=== PATIENT | female | born 1995 | race Caucasian/White ===

== ENCOUNTER 2018-03-30 00:07 | Emergency (ER) | payer OTHER ==
[2018-03-30 00:21] VITALS: BP 109/70; PULSE 80; TEMP 97.6; BMI 21.4
[2018-03-30] MEDS ORDERED: RANITIDINE HCL 150 MG TABLET (FP) PO ONE (00:26)
[2018-03-30] MEDS ORDERED: predniSONE 20 MG TABLET (UD) PO ONE (00:26)
--- NOTE | 2018-03-30 00:31 | PDOC ---
History of Present Illness - General Chief Complaint: Allergic Reaction Stated Complaint: ALLERGIC REACTION Time Seen by Provider: 03/30/18 00:21 History Source: Patient Exam Limitations: No Limitations - History of Present Illness Initial Comments: 03/30/18 00:27 22-year-old woman without significant past medical history who presents emergency Department with throat itching starting at approximately 9:00 this evening. Patient states she was eating a home-cooked meal vegetables and rice when she began to experience some itching and tingling in her mouth. She took Benadryl at that time but has not had relief of the throat itching. Patient denies any shortness of breath, difficulty breathing, vocal changes, drooling or swallowing. Past History - Past Medical History Home Medications: Ambulatory Orders Prednisone [Prednisone 50 MG TABLETS] 50 mg PO DAILY #3 tablet 03/30/18 - Suicide/Smoking/Psychosocial Hx Smoking History: Never smoked Have you smoked in the past 12 months: No Information on smoking cessation initiated: No Hx Alcohol Use: No Drug/Substance Use Hx: No Review of Systems - Review of Systems Able to Perform ROS?: Yes Is the patient limited Finnish proficient: No Constitutional: No: Symptoms Reported HEENTM: Yes: See HPI Respiratory: No: Symptoms reported Cardiac (ROS): No: Symptoms Reported ABD/GI: No: Symptoms Reported : No: Symptoms Reported Musculoskeletal: No: Symptoms Reported Integumentary: No: Symptoms Reported Neurological: No: Symptoms reported Endocrine: No: Symptoms Reported Hematologic/Lymphatic: No: Symptoms Reported *Physical Exam - Vital Signs Last Vital Signs Temp Pulse Resp BP Pulse Ox 97.6 F 80 20 109/70 99 03/30/18 00:20 03/30/18 00:20 03/30/18 00:20 03/30/18 00:20 03/30/18 00:20 - Physical Exam General Appearance: Yes: Appropriately Dressed. No: Apparent Distress HEENT: positive: Normal ENT Inspection. negative: Muffled/Hoarse voice, Excessive drooling Neck: positive: Trachea midline, Supple. negative: Stridor Respiratory/Chest: positive: Lungs Clear, Normal Breath Sounds. negative: Respiratory Distress, Accessory Muscle Use Integumentary: positive: Other (Fine flesh-colored pruritic rash noted to chin and upper extremities.) Neurologic: positive: Alert, Normal Response Medical Decision Making - Medical Decision Making 03/30/18 00:29 A/P: 22-year-old female with ALLERGIC reaction to unknown substance Oropharynx clear without edema No sublingual edema palpated No drooling No stridor noted Lungs clear to auscultation bilaterally Fine flesh-colored pruritic rash to face and bilateral upper extremities Zantac 300 mg, prednisone 60 mg, observe 03/30/18 01:28 Patient states relief of symptoms after receiving medications. Physical exam has not changed. I will discharge the patient home to follow-up with ENT to identify allergen. Patient is in agreement with this plan and verbalized understanding of discharge instructions. *DC/Admit/Observation/Transfer Diagnosis at time of Disposition: Allergic reaction Qualifiers: Encounter type: initial encounter Qualified Code(s): T78.40XA - Allergy, unspecified, initial encounter - Discharge Dispostion Disposition: HOME Condition at time of disposition: Fair Decision to Admit order: No - Prescriptions Prescriptions: Prednisone [Prednisone 50 MG TABLETS] 50 mg PO DAILY #3 tablet - Referrals Referrals: Mariano Ruiz MD [Staff Physician] - - Patient Instructions Additional Instructions: Take prednisone 50 mg daily for the next 3 days Keep Pepcid and Benadryl in her purse at all times. Take these pills as directed by manufacturers instructions if you begin to experience itching in your throat. If you take Pepcid and Benadryl proceed immediately to the closest emergency department for evaluation. You have been given a referral to Dr. Ruiz who is an ENT specialist. Make an appointment to identify the offending allergen. Return to emergency department for shortness of breath, difficulty breathing, wheezing, drooling or any other concerns. - Post Discharge Activity
[2018-03-30] MEDS ORDERED: RANITIDINE HCL 150 MG TABLET (FP) ONE (00:44)
[2018-03-30] MEDS ORDERED: predniSONE 20 MG TABLET (UD) ONE (00:44)
== END 2018-03-30 01:46 | disposition home or self-care (01) ==
LOC: JER 00:07
DX: T78.40XA Allergy, unspecified, initial encounter (principal)
CPT/HCPCS: 99282-25